=== PATIENT | female | born 1960 | race Caucasian/White ===

== ENCOUNTER 2018-10-06 15:31 | Outpatient (CLI) | payer OTHER ==
--- NOTE | 2018-10-06 16:05 | RAD ---
FRadiograph lumbar spine 4 views: 09/28/2018 HISTORY: 58-year-old female with lumbar spondylosis TECHNIQUE: All views are standing, weightbearing. AP view. 3 lateral views in neutral, flexion, and extension. FINDINGS: There are 5 lumbar type vertebrae. Vertebral body heights are maintained. No high-grade disc space na rrowing at any level. No scoliosis. Facet DJD bilaterally at L4-5 and L5-S1. Minimal 1 mm anterolisth esis of L4 on L5 on the neutral and extension views. This becomes a 2 mm minimal anterolisthesis of L 4 on L5 on the flexion view. IMPRESSION: 1. Minimal instability at L4-5. 2. No high-grade degenerative disc disease at any level.
== END 2018-10-06 15:32 | disposition home or self-care (01) ==
LOC: BICRAD 15:31
PROVIDERS: ATTEND Nurse Practitioner Family
DX: M47.816 Spondylosis without myelopathy or radiculopathy, lumbar region (principal); M53.2X6 Spinal instabilities, lumbar region
CPT/HCPCS: 72120